=== PATIENT | male | born 1955 | race Caucasian/White ===

== ENCOUNTER 2016-09-02 16:18 | Emergency (ER) | payer OTHER ==
[~2016-09-02] VITALS: Ht 177.8 cm; Wt 93.2 kg
[~2016-09-02 16:18] MED LIST: BUTA1CAP45 PO; MEPE50TA PO
[2016-09-02 16:22] VITALS: BP 158/106; PULSE 74; RESP 16; O2SAT 98
--- NOTE | 2016-09-02 16:29 | ED.REPORT ---
HPI-Trauma Minor / Fall Date of Service Sep 02, 2016 ED Provider: Jarrett Rodriguez MD Patient is a 61 year old male with a history of TB, chronic back pain and spinal fusion presenting to the ED c/o head trauma. The pt was at work when a 40 pound door fell on his head. He denies loss of consciousness or vomiting but is now experiencing headache, dizziness and numbness around a small laceration on his head. The patient believes that his tetanus vaccination is up to date and denies t-dap at this time. He is not taking any blood thinners. Nursing Notes Stated Complaint: HEAD INJURY Chief Complaint: Head, Face, Neck Trauma Nursing Notes Reviewed: Yes Allergies: Coded Allergies: Iodine and Iodide Containing Produc (Verified Allergy, Unknown, 01/10/16) Uncoded Allergies: ALKALINE SOAPS (Allergy, Unknown, rashing, 01/03/16) Scheduled PRN Butalbital/Acetamin/Caff 50-325-40 mg (Esgic 50-325-40 mg) 1 Each Capsule 1-2 CAPSULE PO Q4H PRN PRN Headache NTE 6 caps/24hrs Meperidine (Demerol) 50 Mg Tablet 50-100 MG PO Q8H PRN PRN Pain General Time Seen by MD: 16:26 Chief Complaint Head injury Hx Obtained From: Patient Arrived By: Walk-in Onset Occurred: Just prior to arrival Symptom Duration: Since onset Caused by: Accidental Context: Occurred at: Workplace Recent Healthcare: No recent doctor visit, No recent hospitalization Similar Sx Previous: Yes Risk Factors Head CT Imaging Inclusion Criteria: Presentation w/in 24 hrs. Patient Presents WITHOUT: Loss of Conciousness Consider Non Contrast CT for: >/= 60 yo Age Severe Headache WITHOUT LOC RF Statements: Risk factors reviewed Past Medical History Past Medical History History of kidney stones History of chronic back pain TBI 10 years ago Past Surgical History L4-L5 spinal fusion Smoking History Former Smoker Social History Alcohol Use: Denies alcohol use Drug Use: Denies drug use Other Social History: Good social support Ambulatory Status Independent Review of Systems Review of Systems Note: laceration Musculoskeletal: Denies: Extremity pain Skin: Denies Rash Neurologic: Reports: Dizziness, Headache, Numbness, Denies: Change LOC Complete sys rev & neg: except as marked. GI: Denies: Nausea, Vomiting Physical Exam Initial Vital Signs Vital Signs (First) Date Time Temp Pulse Resp B/P Pulse Ox O2 Delivery O2 Flow Rate FiO2 09/02/16 16:22 36.8 74 16 158/106 98 Room Air Initial VS: Reviewed General/Constitutional: Awake, Alert Neck: Atraumatic, Supple, Full range of motion Head / Eyes: Normocephalic, PERRL, EOMI 1 cm superficial laceration on the right parietal region ENT: Atraumatic, Airway patent, Mucous membranes moist Respiratory / Chest: Atraumatic, Breath sounds NL, Breath sounds = bilat, No respiratory distress Cardiovascular: Heart rate NL, Regular rhythm, Heart sounds NL Abdomen: Atraumatic, Soft, Non-tender Back: Atraumatic, Full range of motion Upper Extremity / MS: Atraumatic, Full range of motion Lower Extremity / Pelvis / MS: Atraumatic, Full range of motion Skin: Color NL, No rash, Warm, Dry Neurologic: Oriented X3, Speech NL, No motor deficits, No sensory deficits, CN II - XII intact strength 5/5 Psychiatric: Affect NL, Mood NL Interpretation & Diagnostics CT Head Interpretation IMPRESSION: No acute intracranial disease process. Dictated by: Penelope Chaudhry MD, PhD on 09/02/2016 at 16:54 Approved by: Penelope Chaudhry MD, PhD on 09/02/2016 at 16:56 Interpretation / Wet Read by: Interpret - Radiologist Re-Eval/Medical Decision Med Decision/Clinical Course 61-year-old male history of TBI presenting complaining of head trauma. A door fell on his head at work. Now with severe headache. Given his age and severe headache proceeded with CT head which was negative for acute pathology. Patient likely with concussion. Also the laceration which is superficial over the right parietal region. No need for repair given superficial. He is up-to-date on tetanus. Discharged home in good condition with return precautions given. Source of Hx: Old records Re-Evaluation/Progress : Time of Eval: 17:39 Patient Status: Condition improved Re-Evaluation/Progress Note: Pt rechecked, who is comfortable. The diagnosis and plan for discharge are discussed. The pt understands and agrees with the plan. All questions are addressed at this time. Counseled Regarding: Diagnosis, Lab results, Need for follow-up, When/why to return to ED Discharge & Departure Impression: Primary Impression: Head trauma Encounter type: initial encounter Qualified Code: S09.90XA - Unspecified injury of head, initial encounter Additional Impression: Laceration Disposition: Home Discharge Condition All VS Reviewed: Yes Condition: Stable Patient Instructions: Concussion (ED), Head Injury (ED), Laceration (ED) Additional Instructions: Your CT scan was reassuring. Return to the emergency department if you develop any new or worsening symptoms including headache, vomiting, confusion, difficulty speaking, difficulty swallowing, weakness, numbness or tingling. Referrals: Umair Kitchen DO (PCP) Scribe Attestation Portions of this note were transcribed by Deisy Piña & Marino Montelongo. I, Dr. Rodriguez personally performed the history, physical exam and medical decision-making; I reviewed and confirmed the accuracy of the information in the transcribed note. Signed by: Devorah Spencer, 09/02/2016 and [id number]. copies to: Umair Kitchen Ben M MD Sep 02, 2016 16:29 Deisy Piña Sep 02, 2016 16:37 MARINO MONTELONGO Sep 02, 2016 17:52
--- NOTE | 2016-09-02 16:57 | DRSVH ---
PROCEDURE: CT BRAIN WITHOUT CONTRAST ([id number]) INDICATIONS: head trauma TECHNIQUE: Noncontrast 4.5 mm thick angled axial sections acquired from the foramen magnum to the vertex, with c oronal reformats. COMPARISON: None. FINDINGS: Image quality: Excellent. CSF spaces: Basal cisterns are patent. No extra-axial fluid collections. Ventricles are normal in size and shape. Brain: No midline shift. No intracranial masses or hemorrhage. Newby-white matter interface is norm al. Skull and face: Calvarium and visualized facial bones are intact, without suspicious lesions. Small left parietal scalp hematoma is noted. Sinuses: Visualized sinuses and mastoids are clear. IMPRESSION: No acute intracranial disease process. Dictated by: Penelope Chaudhry MD, PhD on 09/02/2016 at 16:54 Approved by: Penelope Chaudhry MD, PhD on 09/02/2016 at 16:56
== END 2016-09-02 17:55 | disposition home or self-care (01) ==
LOC: SED 16:18
DX: S01.01XA Laceration without foreign body of scalp, initial encounter (principal); W20.8XXA Other cause of strike by thrown, projected or falling object, initial encounter; Y92.59 Other trade areas as the place of occurrence of the external cause; Y93.89 Activity, other specified; Y99.0 Civilian activity done for income or pay; M54.9 Dorsalgia, unspecified; G89.29 Other chronic pain; Z87.820 Personal history of traumatic brain injury; Z98.1 Arthrodesis status; Z87.891 Personal history of nicotine dependence; Z91.041 Radiographic dye allergy status